=== PATIENT | female | born 1965 | race Caucasian/White ===

== ENCOUNTER 2017-06-02 17:52 | Emergency (ER) | payer OTHER ==
[2017-06-02] MEDS ORDERED: Sodium Chloride 0.9% 1000 ML 1,000 ML IV STA (18:24)
[2017-06-02] MEDS ORDERED: TORAdol 30 mg Injection IV ONE (18:24)
[2017-06-02] MEDS ORDERED: Pepcid 20 MG VIAL IV ONE ×2 (18:24→18:33)
[2017-06-02] MEDS ORDERED: MORPHINE SULFATE 4 MG INJ IV ONE ×2 (18:24→20:59)
--- NOTE | 2017-06-02 18:24 | ERPHSYRPT ---
- History of Present Illness Historian: patient Exam Limitations: no limitations Patient Subjective Stated Complaint: HERE FOR PAIN UNDER RIGHT BREAST, SUDDEN ONSET 30 MINS AGO, NO FEVER, OR COUGH Triage Nursing Assessment: PT ARRIVED, BENDING OVER, HOLDING ONTO RIGHT SIDE, FACE FLUSHED, RESP EASY BUT SHALLOW, NO EDEMA NOTED Timing/Duration: today, hour(s) (1) Activities at Onset: none Quality: sharpness, stabbing Abdominal Pain Onset Location: RUQ Pain Radiation: back Severity of Pain-Max: severe Severity of Pain-Current: severe Modifying Factors: Improves With: nothing Associated Symptoms: denies symptoms Previous symptoms: no prior history Hx Influenza Vaccination/Date Given: No Hx Pneumococcal Vaccination/Date Given: No Immunizations Up to Date: Yes <JAMILA ALVAREZ - Last Filed: 06/02/17 19:08> <BATSHEVA DAMIAN - Last Filed: 06/02/17 21:04> - History of Present Illness Time Seen by Provider: 06/02/17 18:20 Physician History: The patient is a 51-year-old female complains of a sudden onset of right upper quadrant abdominal pain that began 30 minutes prior to arrival. She had just eaten some macaroni and cheese about 15 minutes for the pain began. She's had her gallbladder removed. She denies nausea, vomiting, or diarrhea. She denies fever or chills. She denies shortness of breath except for when she takes a deep breath makes the pain worse. She denies chest pain. Her past medical history is significant for high cholesterol, tubal ligation, cholecystectomy, and uterine ablation. Her last menstrual period was 4-5 years ago. (JAMILA ALVAREZ) Allergies/Adverse Reactions: nitrofurantoin [From Macrodantin] Allergy (Verified 06/02/17 18:02) sulfamethoxazole [From Bactrim] Allergy (Verified 06/02/17 18:02) trimethoprim [From Bactrim] Allergy (Verified 06/02/17 18:02) Home Medications: Unobtainable [Unobtainable] 06/02/17 [History] - Review of Systems Constitutional: No Fever, No Chills Eyes: No Symptoms Ears, Nose, & Throat: No Symptoms Respiratory: No Cough, No Dyspnea Cardiac: No Chest Pain, No Edema, No Syncope Abdominal/Gastrointestinal: Abdominal Pain Genitourinary Symptoms: No Dysuria Musculoskeletal: No Back Pain, No Neck Pain Skin: No Rash Neurological: No Dizziness, No Focal Weakness, No Sensory Changes Psychological: No Symptoms Endocrine: No Symptoms Hematologic/Lymphatic: No Symptoms Immunological/Allergic: No Symptoms All Other Systems: Reviewed and Negative <JAMILA ALVAREZ - Last Filed: 06/02/17 19:08> - Past Medical History Pertinent Past Medical History: Yes Cardiac History: High Cholesterol - Past Surgical History Past Surgical History: Yes Gastrointestinal: Cholecystectomy Female Surgical History: Tubal Ligation - Social History Smoking Status: Current every day smoker Drug Use: none Patient Lives Alone: No - Female History Hx Last Menstrual Period: POST Hx Now: No <JAMILA ALVAREZ - Last Filed: 06/02/17 19:08> - Physical Exam General Appearance: severe distress Eye Exam: PERRL/EOMI, eyes nml inspection Ears, Nose, Throat Exam: normal ENT inspection, pharynx normal, moist mucous membranes Neck Exam: normal inspection, non-tender, supple, full range of motion Respiratory Exam: normal breath sounds, lungs clear, No respiratory distress Cardiovascular Exam: regular rate/rhythm, normal heart sounds Gastrointestinal/Abdomen Exam: tenderness (RUQ) Pelvic Exam: not done Rectal Exam: not done Back Exam: normal inspection, normal range of motion, No CVA tenderness, No vertebral tenderness Extremity Exam: normal inspection, normal range of motion, pelvis stable Neurologic Exam: alert, oriented x 3, cooperative, normal mood/affect, nml cerebellar function, sensation nml, No motor deficits Skin Exam: normal color, warm, dry SpO2 Interpretation: normal SpO2: 97 Oxygen Delivery: Room Air <JAMILA ALVAREZ - Last Filed: 06/02/17 19:08> - Nursing Vital Signs Nursing Vital Signs: Initial Vital Signs Temperature 97.6 F 06/02/17 17:53 Pulse Rate 87 06/02/17 17:53 Respiratory Rate 24 06/02/17 17:53 Blood Pressure 116/91 06/02/17 17:53 O2 Sat by Pulse Oximetry 97 06/02/17 17:53 Pain Scale Pain Intensity 5 - Course EKG Interpreted by Me: RATE, Sinus Rhythm, NORMAL AXIS, NORMAL INTERVALS, NORMAL QRS, NORMAL ST-T <JAMILA ALVAREZ - Last Filed: 06/02/17 19:08> - Course Nursing assessment & vital signs reviewed: Yes - Radiology Exams Abdomen X-ray Interpretation: Interpreted by me, Other (three-view abdomen: Chest no acute disease process, moderate amount of air in the bowel no free air no obstruction.) <BATSHEVA DAMIAN - Last Filed: 06/02/17 21:04> Ordered Tests: Active Orders 24 hr Category Date Time Status EKG-ER Only STAT Care 06/02/17 18:24 Active IV Insertion STAT Care 06/02/17 18:24 Active OBSTR/ACUTE ABDOMEN SERIES Stat Exams 06/02/17 20:23 Taken CBC W DIFF Stat Lab 06/02/17 18:05 Completed CMP Stat Lab 06/02/17 18:05 Completed HCG QUALITATIVE,SERUM Stat Lab 06/02/17 18:05 Completed LIPASE Stat Lab 06/02/17 18:05 Completed Lactic Acid Stat Lab 06/02/17 18:37 Completed Lactic Acid Stat Lab 06/02/17 20:44 Ordered UA W/ MICROSCOPIC Stat Lab 06/02/17 18:15 Completed Medication Summary Discontinued Medications Generic Name Dose Route Start Last Admin Trade Name Lutherq PRN Reason Stop Dose Admin Famotidine 20 mg 06/02/17 18:24 06/02/17 18:34 Pepcid 20 Mg Vial IV 06/02/17 18:25 20 mg STAT ONE Administration Famotidine Confirm 06/02/17 18:33 Pepcid 20 Mg Vial Administered 06/02/17 18:34 Dose 20 mg IV .STK-MED ONE Sodium Chloride 1,000 mls @ 999 mls/hr 06/02/17 18:24 06/02/17 18:34 Sodium Chloride 0.9% 1000 Ml IV 06/02/17 19:24 999 mls/hr .Q1H1M STA Administration Sodium Chloride Confirm 06/02/17 18:33 Sodium Chloride 0.9% 1000 Ml Administered 06/02/17 18:34 Dose 1,000 mls @ ud .ROUTE .STK-MED ONE Ketorolac Tromethamine 30 mg 06/02/17 18:24 06/02/17 18:34 Toradol 30 Mg Injection IV 06/02/17 18:25 30 mg STAT ONE Administration Ketorolac Tromethamine Confirm 06/02/17 18:33 Toradol 30 Mg Injection Administered 06/02/17 18:34 Dose 30 mg .ROUTE .STK-MED ONE Morphine Sulfate 4 mg 06/02/17 18:24 06/02/17 18:34 Morphine Sulfate 4 Mg Inj IV 06/02/17 18:25 4 mg STAT ONE Administration Morphine Sulfate Confirm 06/02/17 18:33 Morphine Sulfate 4 Mg Inj Administered 06/02/17 18:34 Dose 4 mg .ROUTE .STK-MED ONE Morphine Sulfate 4 mg 06/02/17 20:59 Morphine Sulfate 4 Mg Inj IV 06/02/17 21:00 STAT ONE Promethazine HCl 25 mg 06/02/17 18:26 06/02/17 18:34 Phenergan 25 Mg Inj IV 06/02/17 18:27 25 mg STAT ONE Administration Promethazine HCl Confirm 06/02/17 18:33 Phenergan 25 Mg Inj Administered 06/02/17 18:34 Dose 25 mg .ROUTE .STK-MED ONE Lab/Rad Data: Laboratory Result Diagrams 06/02/17 18:05 06/02/17 18:05 Laboratory Results 06/02/17 06/02/17 06/02/17 Range/Units 18:37 18:15 18:05 WBC (4.0-10.5) K/mm3 RBC (4.1-5.4) M/mm3 Hgb (12.0-16.0) gm/dl Hct (35-47) % MCV (78-100) fl MCH (26-32) pg MCHC (32-36) g/dl RDW (11.5-14.0) % Plt Count (150-450) K/mm3 MPV (6-9.5) fl Gran % (36.0-66.0) % Lymphocytes % (24.0-44.0) % Monocytes % (0.0-12.0) % Eosinophils % (0.00-5.0) % Basophils % (0.0-0.4) % Basophils # (0-0.4) Sodium (136-145) mEq/L Potassium (3.5-5.1) mEq/L Chloride (98-107) mEq/L Carbon Dioxide (21-32) mEq/L Anion Gap (5-15) MEQ/L BUN (9-20) mg/dL Creatinine (0.55-1.30) mg/dl Estimated GFR ML/MIN Glucose (70-110) MG/DL Lactic Acid 2.0 (0.4-2.0) Calcium (8.5-10.1) mg/dL Total Bilirubin (0.2-1.0) mg/dL AST (15-37) U/L ALT (12-78) U/L Alkaline Phosphatase (46-116) U/L Serum Total Protein (6.4-8.2) gm/dL Albumin (3.4-5.0) g/dL Lipase (73-393) U/L Serum , Qual NEGATIVE (Negative) Ur Collection Type CCMS Urine Color YELLOW (YELLOW) Urine Appearance CLEAR (CLEAR) Urine pH 5.0 (5-6) Ur Specific [place] 1.010 (1.005-1.025) Urine Protein NEGATIVE (Negative) Urine Ketones NEGATIVE (NEGATIVE) Urine Blood NEGATIVE (0-5) Viraj/ul Urine Nitrite NEGATIVE (NEGATIVE) Urine Bilirubin NEGATIVE (NEGATIVE) Urine Urobilinogen NORMAL (0-1) mg/dL Ur Leukocyte Esterase TRACE (NEGATIVE) Urine Microscopic WBC 0-2 (0-5) /HPF Ur Epithelial Cells FEW (FEW) /HPF Urine Bacteria FEW (NEGATIVE) /HPF Urine Culture Reflexed NO (NO) Urine Glucose NEGATIVE (NEGATIVE) mg/dL Specimen Received 06-02-17202906/02/17 06/02/17 Range/Units 18:05 18:05 WBC 6.8 (4.0-10.5) K/mm3 RBC 4.38 (4.1-5.4) M/mm3 Hgb 13.4 (12.0-16.0) gm/dl Hct 41.9 (35-47) % MCV 95.7 (78-100) fl MCH 30.6 (26-32) pg MCHC 32.0 (32-36) g/dl RDW 12.6 (11.5-14.0) % Plt Count 201 (150-450) K/mm3 MPV 11.3 H (6-9.5) fl Gran % 48.0 (36.0-66.0) % Lymphocytes % 37.4 (24.0-44.0) % Monocytes % 7.8 (0.0-12.0) % Eosinophils % 6.2 H (0.00-5.0) % Basophils % 0.6 (0.0-0.4) % Basophils # 0.04 (0-0.4) Sodium 140 (136-145) mEq/L Potassium 4.4 (3.5-5.1) mEq/L Chloride 104 (98-107) mEq/L Carbon Dioxide 22.7 (21-32) mEq/L Anion Gap 17.2 H (5-15) MEQ/L BUN 15 (9-20) mg/dL Creatinine 0.84 (0.55-1.30) mg/dl Estimated GFR > 60 ML/MIN Glucose 131 H (70-110) MG/DL Lactic Acid (0.4-2.0) Calcium 9.1 (8.5-10.1) mg/dL Total Bilirubin 0.20 (0.2-1.0) mg/dL AST 14 L (15-37) U/L ALT 23 (12-78) U/L Alkaline Phosphatase 71 (46-116) U/L Serum Total Protein 7.6 (6.4-8.2) gm/dL Albumin 3.9 (3.4-5.0) g/dL Lipase 128 (73-393) U/L Serum , Qual (Negative) Ur Collection Type Urine Color (YELLOW) Urine Appearance (CLEAR) Urine pH (5-6) Ur Specific Emmet (1.005-1.025) Urine Protein (Negative) Urine Ketones (NEGATIVE) Urine Blood (0-5) Viraj/ul Urine Nitrite (NEGATIVE) Urine Bilirubin (NEGATIVE) Urine Urobilinogen (0-1) mg/dL Ur Leukocyte Esterase (NEGATIVE) Urine Microscopic WBC (0-5) /HPF Ur Epithelial Cells (FEW) /HPF Urine Bacteria (NEGATIVE) /HPF Urine Culture Reflexed (NO) Urine Glucose (NEGATIVE) mg/dL Specimen Received <JAMILA ALVAREZ - Last Filed: 06/02/17 19:08> - Progress Progress: improved <BATSHEVA DAMIAN - Last Filed: 06/02/17 21:04> - Progress Progress Note: 06/02/17 19:08 Pt care discussed and care transferred to Dr Damian at 19:00. (JAMILA ALVAREZ) 06/02/17 20:17 This is a 51-year-old white female with history of hypercholesterolemia she arrives with complaint of pain in the right upper quadrant 30 minutes prior to arrival patient had eaten macaroni and cheese 15 minutes prior to the pain beginning she has no nausea vomiting or diarrhea she did feel somewhat short of breath secondary to the pain She has no fevers She is states she is feeling better now. Past medical history includes hypercholesterolemia Past surgical history includes tubal ligation cholecystectomy uterine ablation physical examination well- developed well-nourished white female she does not appear to be in acute distress Head is atraumatic normocephalic. Eyes PERRLA EOMI fundi are unremarkable. Ears TMs are intact bilaterally. Nose is clear. Throat is clear. Neck is supple full range of motion. Lungs clear to auscultation and equal bilaterally. Heart regular rate and rhythm without murmur. Abdomen slight right upper quadrant tenderness with palpation positive bowel sounds negative masses negative rebound. Extremities full range of motion pulse equal symmetrical 2 over 4. Neuro patient alert oriented 3 cranial nerves II through XII are intact DTRs symmetrical 2 over 4 Anya Coma Scale is 15 EKG sinus rhythm [address] or T wave changes normal axis essentially normal EKG Patient's labs chemistry essentially normal glucose is mildly elevated at 131 lipase is normal at 128 CBC normal white count 6.8 hemoglobin 13.4 hematocrit 41.9 lactate is 2 Impression abdominal pain right upper quadrant. Plan patient has already had her gallbladder out lipase is within normal limits liver functions are essentially normal Will obtain acute abdomen series, weight patient's urinalysis. 06/02/17 20:22 patient has receivedIV normal saline, morphine, famotidine, and Toradol with improvement. Awaiting acute abdominal series and urinalysis. 06/02/17 21:00 Patient's urine essentially normal acute abdominal series moderate amount of air in the bowel otherwise unremarkable. Patient's other labs essentially normal. Patient states she is feeling better she states she still has some mild discomfort right upper quadrant. Will give patient additional 4 mg of morphine plan return home. Clear fluids 24-48 hours. Follow-up with Dr. Ramsey if symptoms persist tomorrow. 06/02/17 21:03 [place] 5/325 #2 tablets one orally every 4-6 hours as needed for pain. (BATSHEVA DAMIAN) <JAMILA ALVAREZ - Last Filed: 06/02/17 19:08> - Departure Time of Disposition: 21:01 Departure Disposition: Home Critical Care Time: No <BATSHEVA DAMIAN - Last Filed: 06/02/17 21:04> - Departure Clinical Impression: Right upper quadrant pain Condition: Fair Referrals: CARI RAMSEY [Primary Care Provider] - Additional Instructions: Return home. Plenty of fluids. Clear fluids only 24-48 hours if abdominal pain. Follow-up with Dr. Ramsey tomorrow if symptoms persist. Return for acute distress or for severe symptoms.
[2017-06-02] MEDS ORDERED: Phenergan 25 MG INJ IV ONE (18:26)
[2017-06-02] MEDS ORDERED: Phenergan 25 MG INJ ONE (18:33)
[2017-06-02] MEDS ORDERED: MORPHINE SULFATE 4 MG INJ ONE ×2 (18:33→21:09)
[2017-06-02] MEDS ORDERED: TORAdol 30 mg Injection ONE (18:33)
[2017-06-02] MEDS ORDERED: Sodium Chloride 0.9% 1000 ML 1,000 ML ONE (18:33)
[2017-06-02 18:47] LABS: BASOPHIL % 0.6 % (0.0-0.4); Basophil (Absolute #) 0.04 (0-0.4); Eosinophil % 6.2 % (0.00-5.0); Eosinophil (Absolute #) 0.42 (0-0.5); Granulocyte Absolute (ANC) 3.25 (1.4-6.9); Hematocrit 41.9 % (35-47); Hemoglobin 13.4 gm/dl (12.0-16.0); Lymphocyte (Absolute #) 2.53 (1.0-4.6); Lymphocytes % 37.4 % (24.0-44.0); Mean Cell Volume 95.7 fl (78-100); Mean Corpuscular Hemoglobin 30.6 pg (26-32); Mean Platelet Volume 11.3 fl (6-9.5); Monocyte (Absolute #) 0.53 (0.0-1.3); Monocytes % 7.8 % (0.0-12.0); Platelet Count 201 K/mm3 (150-450); Red Blood Count 4.38 M/mm3 (4.1-5.4); Red Cell Distribution Width 12.6 % (11.5-14.0); White Blood Count 6.8 K/mm3 (4.0-10.5)
[2017-06-02 19:43] LABS: ALBUMIN 3.9 g/dL (3.4-5.0); ALKALINE PHOSPHATASE 71 U/L (46-116); ANION GAP 17.2 MEQ/L (5-15); BLOOD UREA NITROGEN 15 mg/dL (9-20); CHLORIDE 104 mEq/L (98-107); Calcium 9.1 mg/dL (8.5-10.1); Carbon Dioxide 22.7 mEq/L (21-32); Creatinine 1 0.84 mg/dl (0.55-1.30); EST GLOMERULAR FILTRATION RATE > 60 ML/MIN; Glucose 131 MG/DL (70-110); LIPASE 128 U/L (73-393); Potassium 4.4 mEq/L (3.5-5.1); SGOT/AST 14 U/L (15-37); SGPT/ALT 23 U/L (12-78); SODIUM 140 mEq/L (136-145); Total Protein 7.6 gm/dL (6.4-8.2)
[2017-06-02 20:30] LABS: Appearance CLEAR (CLEAR); Bacteria FEW /HPF (NEGATIVE); Bilirubin NEGATIVE (NEGATIVE); Blood NEGATIVE Ery/ul (0-5); Epithelial Cells FEW /HPF (FEW); Glucose NEGATIVE (NEGATIVE); Ketones NEGATIVE (NEGATIVE); Leukocyte Esterase TRACE (NEGATIVE); Nitrite NEGATIVE (NEGATIVE); Protein,Urine Dip NEGATIVE (Negative); Urobilinogen NORMAL mg/dL (0-1); WBC 0-2 /HPF (0-5)
[2017-06-02 20:53] VITALS: BP 130/82; PULSE 80; O2SAT 98
[2017-06-02] MEDS ORDERED: NORCO 5/325 MG PO ONE (21:02)
[2017-06-02] MEDS ORDERED: NORCO 5/325 MG ONE (21:09)
--- NOTE | 2017-06-03 09:17 | XRAY ---
Indication: Short of breath. Right upper quadrant pain. Comparison: None 2 views of the abdomen nonacute and nonobstructed with previous cholecystectomy. Solid organs unremarkable. Osseous structures intact with moderate dextrorotoscoliosis centered at the L1-L2 level. Single PA chest demonstrates hazy right lung base opacity, infiltrate versus atelectasis. Remaining heart and lungs normal. Bony thorax intact with nonunited left clavicle shaft fracture. Impression: 1. Negative abdomen. 2. Right base infiltrate/atelectasis. Correlate clinically.
== END 2017-06-02 21:55 | disposition home or self-care (01) ==
LOC: ED 17:52
DX: R10.11 Right upper quadrant pain (principal)
CPT/HCPCS: 36000; 36415; 74022; 80053; 81000; 83605; 83690; 84703; 85025; 93005; 96374; 96375; 99284; J1885; J2270; J2550; A9270-GY

== ENCOUNTER 2018-11-11 11:25 | Observation (INO) | payer OTHER ==
[2018-11-11] MEDS ORDERED: Sodium Chloride 0.9% 1000 ML 1,000 ML IV STA (12:30)
[2018-11-11] MEDS ORDERED: TORAdol 30 mg Injection IV ONE (12:30)
--- NOTE | 2018-11-11 12:35 | ERPHSYRPT ---
- History of Present Illness Time Seen by Provider: 11/11/18 12:25 Historian: patient Exam Limitations: no limitations Patient Subjective Stated Complaint: patietn having abdominal pain in radiation in side and lower back Triage Nursing Assessment: pt is alert nad orientedx3, abl;e top ambulate by self, gait is steady, pupils perrla2, lung sounds clear, abdomen tender to palpation, radiating pain into back, skin warm dry and intact no abnormalities noted, bowel sounds present x4. Physician History: 53-year-old white female with history of hyperlipidemia. Arrives with complaint of suprapubic and left lower quadrant pain and also left flank pain symptoms going on for 4 days. Patient denies nausea no vomiting she denies dysuria or hematuria. Past medical history includes hyperlipidemia. 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 Social history positive tobacco use, positive alcohol use one 6 pack per week, denies illicit drug use. Timing/Duration: day(s) (44 days) Activities at Onset: none Quality: aching, cramping Abdominal Pain Onset Location: LLQ, suprapubic, flank (left flank) Pain Radiation: flank (left flank) Severity of Pain-Max: moderate Severity of Pain-Current: moderate Modifying Factors: Improves With: nothing Associated Symptoms: back (Left flank pain), No chest pain, No diaphoresis, No diarrhea, No fever/chills, No fatigue, No headache, No heartburn, No loss of appetite, No nausea, No neck pain, No rash, No shortness of breath, No syncope, No vomiting, No weakness Previous symptoms: no prior history Allergies/Adverse Reactions: nitrofurantoin [From Macrodantin] Allergy (Verified 06/02/17 18:02) sulfamethoxazole [From Bactrim] Allergy (Verified 06/02/17 18:02) trimethoprim [From Bactrim] Allergy (Verified 06/02/17 18:02) Home Medications: No Reportable Medications [No Reported Medications] 11/11/18 [History] Hx Tetanus, Diphtheria Vaccination/Date Given: Yes Hx Influenza Vaccination/Date Given: No Hx Pneumococcal Vaccination/Date Given: No Immunizations Up to Date: Yes - Review of Systems Constitutional: No Fever, No Chills Eyes: No Symptoms Ears, Nose, & Throat: No Symptoms Respiratory: No Cough, No Dyspnea Cardiac: No Chest Pain, No Edema, No Syncope Abdominal/Gastrointestinal: Abdominal Pain (suprapubic abdominal pain), No Nausea, No Vomiting, No Diarrhea, No Constipation, No Hematemesis, No Hematochezia, No Melena, No Dysphagia, No Appetite Changes Genitourinary Symptoms: Flank Pain (Left flank pain), No Dysuria, No Frequency, No Hematuria, No Hesitancy, No Incontinence, No Urgency, No Urinary Retention, No , No Vaginal Bleeding Musculoskeletal: No Back Pain, No Neck Pain Skin: No Rash Neurological: No Dizziness, No Focal Weakness, No Sensory Changes Psychological: No Symptoms Endocrine: No Symptoms All Other Systems: Reviewed and Negative - Past Medical History Pertinent Past Medical History: Yes Cardiac History: High Cholesterol - Past Surgical History Past Surgical History: Yes Gastrointestinal: Cholecystectomy Female Surgical History: Tubal Ligation - Social History Smoking Status: Current every day smoker Drug Use: none Patient Lives Alone: No - Female History Hx Now: No - Nursing Vital Signs Nursing Vital Signs: Initial Vital Signs Temperature 99.1 F 11/11/18 11:25 Pulse Rate 100 H 11/11/18 11:25 Respiratory Rate 18 11/11/18 11:25 Blood Pressure 123/89 11/11/18 11:25 O2 Sat by Pulse Oximetry 96 11/11/18 11:25 Pain Scale Pain Intensity 7 - Physical Exam General Appearance: mild distress, alert Eye Exam: PERRL/EOMI, eyes nml inspection Ears, Nose, Throat Exam: normal ENT inspection, pharynx normal, moist mucous membranes Neck Exam: normal inspection, non-tender, supple, full range of motion Respiratory Exam: normal breath sounds, lungs clear, No respiratory distress Cardiovascular Exam: regular rate/rhythm, normal heart sounds, capillary refill <2 sec Gastrointestinal/Abdomen Exam: soft, normal bowel sounds, tenderness ( suprapubic and left lower quadrant tenderness), No distention, No mass, No guarding, No ecchymosis, No pulsatile mass, No rebound, No hernia, No hepatomegaly, No organomegaly, No splenomegaly Back Exam: normal range of motion, CVA tenderness (left flank tenderness), No vertebral tenderness Extremity Exam: normal inspection, normal range of motion, pelvis stable Neurologic Exam: alert, oriented x 3, cooperative, senior product manager II-XII nml as tested, normal mood/affect, nml cerebellar function, sensation nml, No motor deficits Skin Exam: normal color, warm, dry SpO2 Interpretation: normal (98%) SpO2: 98 - Course Nursing assessment & vital signs reviewed: Yes - CT Exams Abdomen/Pelvis CT Interpretation: Discussed w/radiologist (CT abdomen and pelvis: Impression: A diverticulosis with acute sigmoid diverticulitis and tiny reactive free fluid. No perforation or abscess .) Ordered Tests: Active Orders 24 hr Category Date Time Status IV Insertion STAT Care 11/11/18 12:30 Active ABDOMEN AND PELVIS W/0 CONTRAS [CT] Stat Exams 11/11/18 12:59 Completed AMYLASE Stat Lab 11/11/18 12:30 Completed CBC W DIFF Stat Lab 11/11/18 12:30 Completed CMP Stat Lab 11/11/18 12:30 Completed CULTURE,URINE Stat Lab 11/11/18 12:00 Received HCG QUALITATIVE,SERUM Stat Lab 11/11/18 12:30 Completed LIPASE Stat Lab 11/11/18 12:30 Completed UA W/RFX UR CULTURE Stat Lab 11/11/18 12:00 Completed Urine Triage Profile Stat Lab 11/11/18 12:30 Completed Medication Summary Generic Name Dose Route Start Last Admin Trade Name Freq PRN Reason Stop Dose Admin Levofloxacin/Dextrose 500 mg in 100 mls @ 100 mls/hr 11/11/18 15:06 Levofloxacin 500mg/100ml D5w IV 11/11/18 16:05 STAT STA Discontinued Medications Generic Name Dose Route Start Last Admin Trade Name Freq PRN Reason Stop Dose Admin Sodium Chloride 1,000 mls @ 999 mls/hr 11/11/18 12:30 11/11/18 12:39 Sodium Chloride 0.9% 1000 Ml IV 11/11/18 13:30 999 mls/hr .Q1H1M STA Administration Sodium Chloride Confirm 11/11/18 12:37 Sodium Chloride 0.9% 1000 Ml Administered 11/11/18 12:38 Dose 1,000 mls @ ud .ROUTE .STK-MED ONE Ketorolac Tromethamine 30 mg 11/11/18 12:30 11/11/18 12:39 Toradol 30 Mg Injection IV 11/11/18 12:31 30 mg STAT ONE Administration Ketorolac Tromethamine Confirm 11/11/18 12:37 Toradol 30 Mg Injection Administered 11/11/18 12:38 Dose 30 mg .ROUTE .STK-MED ONE Morphine Sulfate 4 mg 11/11/18 14:19 11/11/18 14:38 Morphine Sulfate 4 Mg Inj IV 11/11/18 14:20 4 mg STAT ONE Administration Morphine Sulfate Confirm 11/11/18 14:33 Morphine Sulfate 4 Mg Inj Administered 11/11/18 14:34 Dose 4 mg .ROUTE .STK-MED ONE Ondansetron HCl 4 mg 11/11/18 14:19 11/11/18 14:39 Zofran 4 Mg/2 Ml Vial IV 11/11/18 14:20 4 mg STAT ONE Administration Ondansetron HCl Confirm 11/11/18 14:33 Zofran 4 Mg/2 Ml Vial Administered 11/11/18 14:34 Dose 4 mg .ROUTE .STK-MED ONE Lab/Rad Data: Laboratory Result Diagrams 11/11/18 12:30 11/11/18 12:30 Laboratory Results 11/11/18 11/11/18 11/11/18 Range/Units 12:30 12:30 12:30 WBC (4.0-10.5) K/mm3 RBC (4.1-5.4) M/mm3 Hgb (12.0-16.0) gm/dl Hct (35-47) % MCV (78-100) fl MCH (26-32) pg MCHC (32-36) g/dl RDW (11.5-14.0) % Plt Count (150-450) K/mm3 MPV (6-9.5) fl Gran % (36.0-66.0) % Eos # (Auto) (0-0.5) Absolute Lymphs (auto) (1.0-4.6) Absolute Monos (auto) (0.0-1.3) Lymphocytes % (24.0-44.0) % Monocytes % (0.0-12.0) % Eosinophils % (0.00-5.0) % Basophils % (0.0-0.4) % Absolute Granulocytes (1.4-6.9) Basophils # (0-0.4) Sodium 138 (137-145) mmol/L Potassium 4.0 (3.5-5.1) mmol/L Chloride 103 (98-107) mmol/L Carbon Dioxide 23 (22-30) mmol/L Anion Gap 16.5 H (5-15) MEQ/L BUN 11 (7-17) mg/dL Creatinine 0.69 (0.52-1.04) mg/dL Estimated GFR > 60.0 ML/MIN Glucose 101 (74-106) mg/dL Calcium 9.8 (8.4-10.2) mg/dL Total Bilirubin 0.90 (0.2-1.3) mg/dL AST 29 (14-36) U/L ALT 23 (0-35) U/L Alkaline Phosphatase 78 (38-126) U/L Serum Total Protein 7.8 (6.3-8.2) g/dL Albumin 4.4 (3.5-5.0) g/dL Amylase 57 (30-110) U/L Lipase 52 (23-300) U/L Serum , Qual NEGATIVE (Negative) Urine Color (YELLOW) Urine Appearance (CLEAR) Urine pH (5-6) Ur Specific Dana (1.005-1.025) Urine Protein (Negative) Urine Ketones (NEGATIVE) Urine Blood (0-5) Viraj/ul Urine Nitrite (NEGATIVE) Urine Bilirubin (NEGATIVE) Urine Urobilinogen (0-1) mg/dL Ur Leukocyte Esterase (NEGATIVE) Urine WBC (Auto) (0-5) /HPF Urine RBC (Auto) (0-2) /HPF U Epithel Cells (Auto) (FEW) /HPF Urine Bacteria (Auto) (NEGATIVE) /HPF Urine Mucus (Auto) (NEGATIVE) /HPF Urine Culture Reflexed (NO) Urine Glucose (NEGATIVE) mg/dL Urine Opiates Level NEGATIVE (NEGATIVE) Ur Methadone NEGATIVE (NEGATIVE) Urine Barbiturates NEGATIVE (NEGATIVE) Ur Phencyclidine (PCP) NEGATIVE (NEGATIVE) Urine Amphetamine NEGATIVE (NEGATIVE) U Benzodiazepine Level NEGATIVE (NEGATIVE) Urine Cocaine NEGATIVE (NEGATIVE) Urine Marijuana (THC) NEGATIVE (NEGATIVE) 11/11/18 11/11/18 Range/Units 12:30 12:00 WBC 9.8 (4.0-10.5) K/mm3 RBC 4.12 (4.1-5.4) M/mm3 Hgb 13.4 (12.0-16.0) gm/dl Hct 40.0 (35-47) % MCV 97.1 (78-100) fl MCH 32.5 H (26-32) pg MCHC 33.5 (32-36) g/dl RDW 13.5 (11.5-14.0) % Plt Count 179 (150-450) K/mm3 MPV 11.1 H (6-9.5) fl Gran % 75.8 H (36.0-66.0) % Eos # (Auto) 0.24 (0-0.5) Absolute Lymphs (auto) 1.28 (1.0-4.6) Absolute Monos (auto) 0.82 (0.0-1.3) Lymphocytes % 13.1 L (24.0-44.0) % Monocytes % 8.4 (0.0-12.0) % Eosinophils % 2.4 (0.00-5.0) % Basophils % 0.3 (0.0-0.4) % Absolute Granulocytes 7.43 H (1.4-6.9) Basophils # 0.03 (0-0.4) Sodium (137-145) mmol/L Potassium (3.5-5.1) mmol/L Chloride (98-107) mmol/L Carbon Dioxide (22-30) mmol/L Anion Gap (5-15) MEQ/L BUN (7-17) mg/dL Creatinine (0.52-1.04) mg/dL Estimated GFR ML/MIN Glucose (74-106) mg/dL Calcium (8.4-10.2) mg/dL Total Bilirubin (0.2-1.3) mg/dL AST (14-36) U/L ALT (0-35) U/L Alkaline Phosphatase (38-126) U/L Serum Total Protein (6.3-8.2) g/dL Albumin (3.5-5.0) g/dL Amylase (30-110) U/L Lipase (23-300) U/L Serum , Qual (Negative) Urine Color YELLOW (YELLOW) Urine Appearance SLIGHTLY CLOUDY (CLEAR) Urine pH 5.0 (5-6) Ur Specific Dana 1.011 (1.005-1.025) Urine Protein NEGATIVE (Negative) Urine Ketones NEGATIVE (NEGATIVE) Urine Blood SMALL (0-5) Viraj/ul Urine Nitrite POSITIVE (NEGATIVE) Urine Bilirubin NEGATIVE (NEGATIVE) Urine Urobilinogen NEGATIVE (0-1) mg/dL Ur Leukocyte Esterase SMALL (NEGATIVE) Urine WBC (Auto) 6-10 (0-5) /HPF Urine RBC (Auto) 3-5 (0-2) /HPF U Epithel Cells (Auto) RARE (FEW) /HPF Urine Bacteria (Auto) MODERATE (NEGATIVE) /HPF Urine Mucus (Auto) SLIGHT (NEGATIVE) /HPF Urine Culture Reflexed YES (NO) Urine Glucose NEGATIVE (NEGATIVE) mg/dL Urine Opiates Level (NEGATIVE) Ur Methadone (NEGATIVE) Urine Barbiturates (NEGATIVE) Ur Phencyclidine (PCP) (NEGATIVE) Urine Amphetamine (NEGATIVE) U Benzodiazepine Level (NEGATIVE) Urine Cocaine (NEGATIVE) Urine Marijuana (THC) (NEGATIVE) - Progress Progress: improved Progress Note: 11/11/18 15:09 Review 3-year-old white female arrives with complaint of 4 days of left lower quadrant abdominal pain. Patient was stable laboratory studies vitals are stable patient does have colonic diverticulosis with acute sigmoid diverticulitis and tiny reactive free fluid on CT there is no perforation or abscess. Patient was given IV normal saline also given Toradol, and morphine as well as Zofran she still continues to have left lower quadrant abdominal pain. Levaquin 500 mg IV has been ordered I discussed the patient's case with Dr. walker will place patient on observation diagnosis left lower quadrant pain,. Left flank pain, diverticulitis. Will plan to place patient on observation provide IV normal saline provide morphine for pain control continue Levaquin. . - Departure Departure Disposition: Observation Clinical Impression: Left flank pain, Diverticulitis Abdominal pain Qualifiers: Abdominal location: left lower quadrant Qualified Code(s): R10.32 - Left lower quadrant pain UTI (urinary tract infection) Qualifiers: Urinary tract infection type: site unspecified Hematuria presence: without hematuria Qualified Code(s): N39.0 - Urinary tract infection, site not specified Condition: Fair Critical Care Time: No Referrals: CARI WALKER [Primary Care Provider] -
[2018-11-11] MEDS ORDERED: Sodium Chloride 0.9% 1000 ML 1,000 ML ONE (12:37)
[2018-11-11] MEDS ORDERED: TORAdol 30 mg Injection ONE (12:37)
[2018-11-11 12:43] LABS: BASOPHIL % 0.3 % (0.0-0.4); Basophil (Absolute #) 0.03 (0-0.4); Eosinophil % 2.4 % (0.00-5.0); Eosinophil (Absolute #) 0.24 (0-0.5); Granulocyte Absolute (ANC) 7.43 (1.4-6.9); Granulocytes % 75.8 % (36.0-66.0); Hemoglobin 13.4 gm/dl (12.0-16.0); Lymphocyte (Absolute #) 1.28 (1.0-4.6); Lymphocytes % 13.1 % (24.0-44.0); Mean Cell Volume 97.1 fl (78-100); Mean Corpuscular Hemoglobin 32.5 pg (26-32); Mean Corpuscular Hgb Concent. 33.5 g/dl (32-36); Mean Platelet Volume 11.1 fl (6-9.5); Monocyte (Absolute #) 0.82 (0.0-1.3); Monocytes % 8.4 % (0.0-12.0); Platelet Count 179 K/mm3 (150-450); Red Blood Count 4.12 M/mm3 (4.1-5.4); Red Cell Distribution Width 13.5 % (11.5-14.0); White Blood Count 9.8 K/mm3 (4.0-10.5)
[2018-11-11 12:54] LABS: ALBUMIN 4.4 g/dL (3.5-5.0); ALKALINE PHOSPHATASE 78 U/L (38-126); AMYLASE 57 U/L (30-110); ANION GAP 16.5 MEQ/L (5-15); BLOOD UREA NITROGEN 11 mg/dL (7-17); CHLORIDE 103 mmol/L (98-107); Calcium 9.8 mg/dL (8.4-10.2); Carbon Dioxide 23 mmol/L (22-30); Creatinine 1 0.69 mg/dL (0.52-1.04); Glucose 101 mg/dL (74-106); SGOT/AST 29 U/L (14-36); SGPT/ALT 23 U/L (0-35); SODIUM 138 mmol/L (137-145); Total Protein 7.8 g/dL (6.3-8.2)
[2018-11-11 13:10] LABS: Appearance SLIGHTLY CLOUDY (CLEAR); Bacteria MODERATE /HPF (NEGATIVE); Bilirubin NEGATIVE (NEGATIVE); Blood SMALL Ery/ul (0-5); Epithelial Cells RARE /HPF (FEW); Glucose NEGATIVE (NEGATIVE); Ketones NEGATIVE (NEGATIVE); Leukocyte Esterase SMALL (NEGATIVE); Mucus SLIGHT /HPF (NEGATIVE); Nitrite POSITIVE (NEGATIVE); Protein,Urine Dip NEGATIVE (Negative); Specific Gravity 1.011 (1.005-1.025); Urobilinogen NEGATIVE mg/dL (0-1)
--- NOTE | 2018-11-11 14:10 | XRAY ---
Indication: Abdomen/pelvic pain. Multiple contiguous axial images obtained through the abdomen and pelvis without contrast as ordered. Comparison: None Lung bases demonstrates bibasilar dependent atelectasis. No infiltrate or effusion. Heart is not enlarged. Noncontrasted stomach and bowel loops appear nonobstructed. Normal appendix. Scattered diverticulosis in the descending and sigmoid colon. Mid to proximal sigmoid colon demonstrates moderate wall thickening with pericolonic stranding favoring acute diverticulitis. Tiny free fluid but no walled off fluid collection or free air. Right tubal ligation clip and cholecystectomy clips. Remaining liver, pancreas, spleen, adrenal glands, kidneys, ureters, bladder, and uterus appear unremarkable for noncontrast exam. Mild aortoiliac calcifications without AAA. Osseous structures demonstrates mild dextroscoliosis centered at L2 and moderate L5-S1 degenerative disc disease. No ventral or inguinal hernias. Impression: Colonic diverticulosis with acute sigmoid diverticulitis and tiny reactive free fluid. No perforation or abscess. CT DI 22.15
[2018-11-11 14:18] LABS: Amphetamine,Urine NEGATIVE (NEGATIVE); Barbiturate,Urine NEGATIVE (NEGATIVE); Benzodiazepine,Urine NEGATIVE (NEGATIVE); Cocaine,Urine NEGATIVE (NEGATIVE); Methadone,Urine NEGATIVE (NEGATIVE); Opiate,Urine NEGATIVE (NEGATIVE); PCP,Urine NEGATIVE (NEGATIVE); THC,Urine NEGATIVE (NEGATIVE)
[2018-11-11] MEDS ORDERED: Zofran 4 MG/2 ML VIAL IV ONE (14:19)
[2018-11-11] MEDS ORDERED: MORPHINE SULFATE 4 MG INJ IV ONE ×2 (14:19→16:16)
[2018-11-11] MEDS ORDERED: Zofran 4 MG/2 ML VIAL ONE (14:33)
[2018-11-11] MEDS ORDERED: MORPHINE SULFATE 4 MG INJ ONE (14:33)
[2018-11-11] MEDS ORDERED: Levofloxacin 500MG/100ML D5W 500 MG/100 ML BAG IV STA (15:06)
[2018-11-11] MEDS ORDERED: MORPHINE SULFATE 4 MG INJ IV PRN (15:42)
[2018-11-11] MEDS ORDERED: Phenergan 25 MG INJ IM PRN (15:42)
[2018-11-11] MEDS: Sodium Chloride 0.9% 1000 ML 1,000 ML IV SCH (16:12)
[2018-11-11] MEDS ORDERED: Phenergan 25 MG INJ IV PRN (16:55)
[2018-11-11] MEDS ORDERED: TYLENOL 325 MG PO PRN (16:56)
[2018-11-11] MEDS: Nicoderm CQ 21 MG TOP SCH (17:36)
[2018-11-11] MEDS: FLAGYL 500 MG IVPB 500 MG/100 ML BAG IV SCH (17:39)
[2018-11-11] MEDS: MORPHINE SULFATE 4 MG INJ IV PRN (21:16)
[2018-11-12] MEDS: Sodium Chloride 0.9% 1000 ML 1,000 ML IV SCH ×2 (01:05→15:14)
[2018-11-12] MEDS: FLAGYL 500 MG IVPB 500 MG/100 ML BAG IV SCH ×5 (01:05→23:43)
[2018-11-12] MEDS: MORPHINE SULFATE 4 MG INJ IV PRN ×2 (03:27→08:22)
[2018-11-12 05:48] LABS: BASOPHIL % 0.8 % (0.0-0.4); Basophil (Absolute #) 0.04 (0-0.4); Eosinophil % 3.6 % (0.00-5.0); Eosinophil (Absolute #) 0.18 (0-0.5); Granulocytes % 71.7 % (36.0-66.0); Hematocrit 37.1 % (35-47); Hemoglobin 11.7 gm/dl (12.0-16.0); Lymphocyte (Absolute #) 0.77 (1.0-4.6); Lymphocytes % 15.3 % (24.0-44.0); Mean Cell Volume 100.3 fl (78-100); Mean Corpuscular Hemoglobin 31.6 pg (26-32); Mean Corpuscular Hgb Concent. 31.5 g/dl (32-36); Mean Platelet Volume 10.5 fl (6-9.5); Monocyte (Absolute #) 0.43 (0.0-1.3); Monocytes % 8.6 % (0.0-12.0); Platelet Count 151 K/mm3 (150-450); Red Cell Distribution Width 13.7 % (11.5-14.0)
[2018-11-12 06:04] LABS: ALBUMIN 3.4 g/dL (3.5-5.0); ALKALINE PHOSPHATASE 131 U/L (38-126); BLOOD UREA NITROGEN 9 mg/dL (7-17); CHLORIDE 107 mmol/L (98-107); Calcium 8.7 mg/dL (8.4-10.2); Carbon Dioxide 27 mmol/L (22-30); Creatinine 1 0.75 mg/dL (0.52-1.04); Glucose 87 mg/dL (74-106); Potassium 4.3 mmol/L (3.5-5.1); SGOT/AST 270 U/L (14-36); SGPT/ALT 319 U/L (0-35); SODIUM 139 mmol/L (137-145); Total Protein 6.4 g/dL (6.3-8.2)
--- NOTE | 2018-11-12 08:20 | HP ---
HISTORY OF PRESENT ILLNESS: This is a 53 year-old patient who presented to the emergency department with lower abdominal pain. She reports she started having pain yesterday in her lower abdomen and felt sensitive to touch. She thought perhaps she may have a urinary tract infection and it continued to get worse. She felt like she had a fever yesterday with shaking, sweating and continued into today. 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 She came into the emergency department she reports around 1130 hours this morning with abdominal pain. She reports the pain medicine given in the emergency room did help some but wore off. She got another dose of pain medicine here on the floor which she reports is helping. She denies any nausea or vomiting. She has been able to take fluids although she reports she has not eaten anything since yesterday. She has no history of abdominal pain. No history of diverticulosis. She rarely follows up with a doctor and last saw me over three years ago. She reports her last stool was yesterday morning and was normal. She denies any diarrhea. No blood in her stool. REVIEW OF SYSTEMS: No chest pain. No dyspnea. No lower extremity edema. No rashes. She felt like she had a fever. Otherwise review of systems as noted in the history of present illness. MEDICATIONS: Aspirin 81 mg p.o. daily. ALLERGIES: NITROFURANTOIN, SULFA, TRIMETHOPRIM. PAST MEDICAL HISTORY: Hyperlipidemia. She states she is unable to tolerate statins as they give her wild dreams. PAST SURGICAL HISTORY: Cholecystectomy. Uterine ablation. D&C. Tubal ligation. Tumor removed from her back. SOCIAL HISTORY: She smokes one pack per day of cigarettes. She drinks alcohol on average six beers per week. She lives with her boyfriend. She works at the [employer]. FAMILY HISTORY: Her mother is living and has osteoporosis. She reports on her mother side there is a history of stroke. Her father is living and has coronary artery disease. PHYSICAL EXAMINATION: VITAL SIGNS: Temperature current 97.7F, heart rate 79, respiratory rate 20, blood pressure 133/70. Oxygen saturation 96% on room air. GENERAL: The patient is a pleasant talkative lady. She is in some discomfort from pain that got better during her exam. CVS: She has a regular rate and rhythm. No murmurs, gallops or rubs. CHEST: Clear to auscultation bilaterally. ABDOMEN: She has normal bowel sounds, diffusely tender. No guarding. No rigidity. EXTREMITIES: No clubbing, cyanosis or edema. SKIN: Warm, dry and intact. LABORATORY DATA AND TESTS: Her white blood cell count was 9.8, hemoglobin 13.4. CMP within normal limits. UA she had 6-10 white blood cells, 3-5 red blood cells, moderate bacteria. CT scan of the abdomen and pelvis without contrast was read as colonic diverticulosis with acute sigmoid diverticulitis and tiny reactive free fluid. No perforation or abscess. ASSESSMENT AND PLAN: 1) ACUTE SIGMOID AND DESCENDING COLON DIVERTICULITIS: She has been started on Levaquin, will plan to add metronidazole to this. She has morphine 4 mg IV every 2 hours ordered PRN pain as well as Zofran 4 mg IV every four hours as needed for nausea. I discussed with the patient that as an outpatient she will need a colonoscopy. Will continue to monitor closely. Will recheck blood work in the morning. She has IV fluids ordered at 100 ml/hour. 2) BACTERURIA: Will check a urine culture. 3) HISTORY OF ALCOHOL USE: The patient denies any history of withdrawal, will continue to monitor closely. 4) TOBACCO DEPENDENCE: I will plan to discuss with her quitting smoking.
[2018-11-12] MEDS ORDERED: MORPHINE SULFATE 4 MG INJ IV PRN (09:49)
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
[2018-11-12 10:32] LABS: Iron 69 ug/dL (37-170); Iron Saturation 23 % (20-39); TIBC 300 ug/dL (265-462)
[2018-11-12] MEDS: Levofloxacin 500MG/100ML D5W 500 MG/100 ML BAG IV SCH (10:47)
[2018-11-12] MEDS: Nicoderm CQ 21 MG TOP SCH (17:25)
[2018-11-12] MEDS: NORCO 5/325 MG PO PRN (19:54)
[2018-11-13 04:03] LABS: HEPATITIS A IGM Non Reactive (Non Reactive); HEPATITIS B VIRUS CORE TOT AB Non Reactive (Non Reactive); HEPATITIS C VIRUS ANTIBODY Non Reactive (Non Reactive); Hepatitis B Surface Ab.Quant. <3.50 mIU/mL (0.00-8.49); Hepatitis B Surface Antigen Non Reactive (Non Reactive)
[2018-11-13] MEDS: NORCO 5/325 MG PO PRN (04:33)
[2018-11-13] MEDS: FLAGYL 500 MG IVPB 500 MG/100 ML BAG IV SCH (05:38)
[2018-11-13 06:06] LABS: BASOPHIL % 0.7 % (0.0-0.4); Basophil (Absolute #) 0.03 (0-0.4); Eosinophil % 5.6 % (0.00-5.0); Eosinophil (Absolute #) 0.24 (0-0.5); Granulocyte Absolute (ANC) 2.47 (1.4-6.9); Granulocytes % 57.9 % (36.0-66.0); Hematocrit 34.8 % (35-47); Hemoglobin 10.9 gm/dl (12.0-16.0); Lymphocyte (Absolute #) 1.12 (1.0-4.6); Lymphocytes % 26.2 % (24.0-44.0); Mean Cell Volume 99.7 fl (78-100); Mean Corpuscular Hemoglobin 31.2 pg (26-32); Mean Corpuscular Hgb Concent. 31.3 g/dl (32-36); Mean Platelet Volume 10.9 fl (6-9.5); Monocyte (Absolute #) 0.41 (0.0-1.3); Monocytes % 9.6 % (0.0-12.0); Platelet Count 146 K/mm3 (150-450); Red Blood Count 3.49 M/mm3 (4.1-5.4); Red Cell Distribution Width 13.4 % (11.5-14.0); White Blood Count 4.3 K/mm3 (4.0-10.5)
[2018-11-13 06:23] LABS: ALBUMIN 3.3 g/dL (3.5-5.0); ALKALINE PHOSPHATASE 106 U/L (38-126); ANION GAP 9.9 MEQ/L (5-15); BLOOD UREA NITROGEN 8 mg/dL (7-17); CHLORIDE 109 mmol/L (98-107); Calcium 9.1 mg/dL (8.4-10.2); Carbon Dioxide 26 mmol/L (22-30); Creatinine 1 0.66 mg/dL (0.52-1.04); Glucose 98 mg/dL (74-106); SGOT/AST 62 U/L (14-36); SGPT/ALT 189 U/L (0-35); SODIUM 141 mmol/L (137-145); Total Protein 6.2 g/dL (6.3-8.2)
[2018-11-13 07:37] VITALS: BP 117/72; PULSE 63; O2SAT 99
--- NOTE | 2018-11-13 08:44 | PCM.DCORD ---
- Discharge Discharge Date: 11/13/18 Disposition: Home, Self-Care Condition: Good Prescriptions: New Cefdinir 300 mg PO BID #6 capsule Docusate Sodium 100 mg PO BID PRN #60 capsule PRN Reason: Constipation Metronidazole 500 mg [Flagyl 500 MG] 500 mg PO QID #24 tablet Hydrocodone Bit/Acetaminophen [Hydrocodon-Acetaminophen 5-325] 1 each PO QID PRN #10 tablet MDD 4 PRN Reason: Pain Levofloxacin [Levofloxacin 500 MG Tablet] 500 mg PO DAILY #6 tablet Discontinued Aspirin EC 81 mg [Ecotrin 81 mg] 81 mg PO DAILY Additional Instructions: Do not drink alcohol while taking metronidazole. Follow up with: CARI RAMSEY [Primary Care Provider] - 1 Week
--- NOTE | 2018-11-13 09:11 | DS ---
DISCHARGE DIAGNOSES: 1) ACUTE DIVERTICULITIS. 2) URINARY TRACT INFECTION. 3) ELEVATED LIVER FUNCTION TEST. 4) TOBACCO ABUSE. 5) HISTORY OF ALCOHOL USE. DISCHARGE PHYSICAL EXAMINATION: VITALS: Temperature current 97.8F, heart rate 63, respiratory rate 18, blood pressure 117/72. Oxygen saturation 99% on room air. GENERAL: The patient is a pleasant talkative lady sitting up in a chair in no acute distress. CVS: She has a regular rate and rhythm. No murmurs, gallops or rubs. CHEST: Clear to auscultation bilaterally. ABDOMEN: Mildly tender in the lower quadrant bilaterally. No guarding. No tenderness. Normal bowel sounds. EXTREMITIES: No clubbing, cyanosis or edema. SKIN: Warm, dry and intact. HOSPITAL COURSE: 1) ACUTE DIVERTICULITIS: She was started on Levaquin in the emergency department. I added metronidazole when I saw her. Her abdominal pain has improved. She has been able to take a regular diet for three meals with no nausea or vomiting. She denies any diarrhea but has not had a stool yet. She is passing gas. She has been able to tolerate oral pain medication. Will plan to discharge her with six more days of metronidazole and levofloxacin as well as hydrocodone 5/325 mg 1 tablet p.o. four times a day PRN pain #10 with no refills. The patient knows to keep this in a safe place where children cannot get into it and not share it with anyone. We will plan to schedule her for colonoscopy as an outpatient. She is over 50 and needs screening for colon cancer and also to make sure there is nothing else going on besides the diverticulosis in her colon. 2) URINARY TRACT INFECTION: She had a urine culture that grew Escherichia coli. It was resistant to levofloxacin. SHE IS ALLERGIC TO SULFA. I am going to start her on Cefdinir 300 mg p.o. b.i.d. for three days. 3) ELEVATED LIVER FUNCTION TEST: On her second hospital day her AST, ALT and alkaline phosphatase were moderately elevated. They are all trending down today. Her liver was normal on CT scan. 4) TOBACCO ABUSE: The patient was given a nicotine patch while she was here. 5) HISTORY OF ALCOHOL USE: She was counseled not to drink alcohol with the metronidazole. 6) ANEMIA: Her hemoglobin was slightly low. Iron levels were checked and were normal. DISCHARGE MEDICATIONS: Please see the discharge order. FOLLOW UP: She is to follow up with me in one week. DISPOSITION: The patient was discharged home in good condition.
[2018-11-13] MEDS: Levofloxacin 500MG/100ML D5W 500 MG/100 ML BAG IV SCH (09:59)
== END 2018-11-13 10:10 | disposition home or self-care (01) ==
LOC: ED 11:25 → MED SURG 15:40
PROVIDERS: ADMIT Internal Medicine; ATTEND Internal Medicine
DX: K57.32 Diverticulitis of large intestine without perforation or abscess without bleeding (principal); F17.200 Nicotine dependence, unspecified, uncomplicated; N39.0 Urinary tract infection, site not specified; R94.5 Abnormal results of liver function studies; F10.11 Alcohol abuse, in remission; D64.9 Anemia, unspecified; E78.5 Hyperlipidemia, unspecified
CPT/HCPCS: 36000; 36415; 74176; 80053; 80074; 80307; 81001; 81025; 82150; 82728; 83540; 83550; 83690; 85025; 87077; 87086; 87186; 93268; 94762; 96360; 96374; 96375; 99285; G0378; J1885; J1956; J2270; J2405; A9270-GY

== ENCOUNTER 2019-02-08 08:03 | Day surgery (SDC) | payer OTHER ==
--- NOTE | 2019-02-08 07:45 | HP ---
DATE OF SURGERY: 02/08/2019 HISTORY OF PRESENT ILLNESS: The patient is a 53 year-old that had diverticular attack back in October. No prior colonoscopy. Given her age she is in need of screening colonoscopy. No bloody stools. No change in bowel movements. She also admits to loose stools and constipation that has been going on for years, no recent changes. Family history negative for colon cancer. PAST MEDICAL HISTORY: She denies any chronic illnesses. PAST SURGICAL HISTORY: D&C and tubal in the past. She had ablation in the past. She had cholecystectomy. She had tumor removed in the past. MEDICATIONS: Fish oil, buspirone, trazodone. ALLERGIES: SULFA. MACRODANTIN. FAMILY HISTORY: Heart disease, diabetes, hypertension. Negative for colon cancer. SOCIAL HISTORY: One pack per day smoker, does drink some alcohol denies abuse. REVIEW OF SYSTEMS: Fourteen systems reviewed. No chest pain or palpitations other systems negative or noncontributory as above and per preadmission questionnaire. PHYSICAL EXAMINATION: GENERAL: No acute distress. HEENT: Sclerae nonicteric. NECK: No JVD. CHEST: Equal excursion, nonlabored breathing. CVS: Regular rate and rhythm. ABDOMEN: Soft. No peritoneal signs. EXTREMITIES: No significant edema. NEURO: Alert, oriented, moving extremities symmetrically. No gross motor deficits noted. RECTAL: Deferred timed to endoscopy exam. IMPRESSION: No prior colonoscopy. Need for screening colonoscopy. I feel the patient is a candidate. Risks and benefits explained in detail but not limited to bleeding or infection, risk of bowel injury or perforation possibly requiring open procedure, risk of missed or nondiagnosis or incomplete exam possibly requiring barium enema, other studies or procedures, general risk of anesthesia or sedation, risk of bowel prep but not limited to. She understands and agrees to the planned procedure and will proceed with outpatient screening colonoscopy.
[~2019-02-08 08:03] MED LIST: DIPRIVAN 200 MG/20 ML IV ONE; Ketamine HCl 50 MG/ML ONE; Lactated Ringers 1,000 ML IV SCH
[2019-02-08] MEDS ORDERED: Lactated Ringers 1,000 ML IV ONE (08:37)
[2019-02-08] MEDS ORDERED: DIPRIVAN 200 MG/20 ML IV ONE (10:34)
[2019-02-08 11:52] VITALS: BP 145/90; PULSE 70; O2SAT 99
--- NOTE | 2019-02-08 15:01 | OP ---
SURGERY DATE/TIME: 02/08/2019 1026 PREOPERATIVE DIAGNOSIS: Need for screening colonoscopy. POSTOPERATIVE DIAGNOSES: 1) Small rectal polyp. 2) Pancolonic diverticulosis most prominent left colon. 3) Fair bowel prep. 4) Small internal hemorrhoids. PROCEDURES: 1) Colonoscopy to terminal ileum. 2) Retrograde ileoscopy. 3) Hot biopsy polypectomy small rectal polyp. SURGEON: Dr. Marvin Harman. ANESTHESIA: MAC. ESTIMATED BLOOD LOSS: Minimal. INDICATIONS: As noted above. Risks and benefits explained in detail but not limited to and consent obtained. DESCRIPTION OF PROCEDURE AND FINDINGS: The patient is taken to the operating room. MAC anesthesia introduced. After official time out and no disagreement with planned procedure, digital rectal exam did not reveal any rectal masses. She did have some small internal hemorrhoids. Video colonoscope inserted and passed up through the slightly tortuous descending, transverse and ascending colon around to the cecum up to the terminal ileum. Retrograde ileoscopy performed which was grossly unremarkable. The scope was carefully withdrawn over the next 8 to 9 minutes. Prep overall is fair with some liquidy stool throughout the colon suction irrigated as clear as possible, this slightly limited the exam for very tiny lesions otherwise fair bowel prep. The scope slowly and carefully withdrawn. She did have pancolonic diverticulosis most severe in the left colon. There were no signs of any polyps, masses or obstructing lesions. She did have a small polyp in the distal rectum that was removed with hot biopsy forceps with brief bursts of cautery. Good hemostasis noted. She had some small, minimal internal hemorrhoids. The small polyp in the distal rectum removed with hot biopsy polypectomy with brief bursts of cautery. Good hemostasis noted. She did not have any family available here to discuss the findings with. I will see her back in the office next week.
== END 2019-02-08 11:55 | disposition home or self-care (01) ==
LOC: SDC 08:03
PROVIDERS: ATTEND Surgery
DX: Z12.11 Encounter for screening for malignant neoplasm of colon (principal); K57.30 Diverticulosis of large intestine without perforation or abscess without bleeding; K64.8 Other hemorrhoids; D12.8 Benign neoplasm of rectum
CPT/HCPCS: 88305; J2704

== ENCOUNTER 2020-09-27 19:25 | Emergency (ER) | payer OTHER ==
[2020-09-27] MEDS ORDERED: TYLENOL 325 MG ONE (21:04)
[2020-09-27] MEDS: TYLENOL 325 MG PO ONE (21:05)
[2020-09-27 21:49] VITALS: BP 125/76; PULSE 74; O2SAT 98
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
== END 2020-09-27 23:01 | disposition home or self-care (01) ==
LOC: ED 19:25
DX: S62.91XA Unspecified fracture of right hand, initial encounter for closed fracture (principal); S06.0X0A Concussion without loss of consciousness, initial encounter; Y08.89XA Assault by other specified means, initial encounter; Y04.0XXA Assault by unarmed brawl or fight, initial encounter; Y93.9 Activity, unspecified; Y92.9 Unspecified place or not applicable; M79.641 Pain in right hand
CPT/HCPCS: 70450; 73130; 99284; A9270-GY

== ENCOUNTER 2024-05-21 19:20 | Emergency (ER) | payer BC ==
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
[2024-05-21 19:42] VITALS: TEMP 98.8
[2024-05-21] MEDS ORDERED: BABY ASPIRIN 81 MG CHEW ONE (19:42)
[2024-05-21 19:43] LABS: Absolute Neutrophil Ct (ANC) 3.28 x10^3/uL (1.56-6.13); BASOPHIL % 0.9 % (0.1-1.2); Basophil (Absolute #) 0.06 x10^3/uL (0.01-0.08); Eosinophil % 2.5 % (0.7-5.8); Eosinophil (Absolute #) 0.17 x10^3/uL (0.04-0.36); Hematocrit 42.7 % (34.1-44.9); Hemoglobin 13.9 g/dL (11.2-15.7); IMMATURE GRAN # 0.01 x10^3u/L (0.001-0.031); IMMATURE GRAN % 0.1 % (0.001-0.429); Lymphocyte (Absolute #) 2.75 x10^3/uL (1.18-3.74); Lymphocytes % 40.6 % (19.3-51.7); Mean Cell Volume 90.7 fL (79.4-94.8); Mean Corpuscular Hemoglobin 29.5 pg (25.6-32.2); Mean Corpuscular Hgb Concent. 32.6 g/dL (32.2-35.5); Mean Platelet Volume 10.3 fL (9.4-12.3); Monocytes % 7.4 % (4.7-12.5); Neutrophil % 48.5 % (34.0-71.1); Platelet Count 238 x10^3/uL (182-369); Red Blood Count 4.71 x10^6/uL (3.93-5.22); White Blood Count 6.8 x10^3/uL (3.98-10.04)
[2024-05-21] MEDS: BABY ASPIRIN 81 MG CHEW PO ONE (19:43)
[2024-05-21 19:57] LABS: ALBUMIN 5.2 g/dL (3.5-5.0); BILIRUBIN,TOTAL 0.3 mg/dL (0.2-1.3); Calcium 10.1 mg/dL (8.4-10.2); Creatinine 1 0.87 mg/dL (0.52-1.04); EST GLOMERULAR FILTRATION RATE 78.2 ML/MIN; MAGNESIUM 2.2 mg/dL (1.6-2.3); Potassium 3.4 mmol/L (3.5-5.1); Total Protein 8.5 g/dL (6.3-8.2)
[2024-05-21 20:42] VITALS: BP 141/85; PULSE 81; RESP 19; O2SAT 96
[2024-05-21] MEDS ORDERED: NORCO 5/325 MG ONE (20:45)
[2024-05-21] MEDS: NORCO 5/325 MG PO ONE (20:48)
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
== END 2024-05-21 20:52 | disposition home or self-care (01) ==
LOC: ED 19:20
DX: R07.9 Chest pain, unspecified (principal); F45.9 Somatoform disorder, unspecified; E78.5 Hyperlipidemia, unspecified; Z79.899 Other long term (current) drug therapy; Z72.0 Tobacco use
CPT/HCPCS: 36415; 71045; 80053; 83735; 84484; 85025; 85379; 93005; 93041; 94760; 99284; 99285; A9270-GY